=== PATIENT | female | born 1975 | race Asian ===

== ENCOUNTER 2018-09-10 15:01 | Emergency (ER) | payer OTHER, MEDICAID, SELFPAY ==
[2018-09-10 15:07] VITALS: BP 144/94; PULSE 99; RESP 14; TEMP 37.3; O2SAT 98
--- NOTE | 2018-09-10 15:30 | PC.NURSE ---
LE contacted per pt request
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
[2018-09-10 16:01] LABS: Add Manual Diff / Slide Review NO; Basophils Percent Auto 0.3 % (0-2); Eosinophils Percent Auto 6.1 % (2-4); Hematocrit 36.6 % (36-46); Hemoglobin 12.2 g/dL (12.0-16.0); Lymphocytes Percent Auto 39.5 % (25-40); Mean Corpuscular HGB Conc 33.2 % (30-36); Mean Corpuscular Hemoglobin 31.3 PG (26-34); Mean Corpuscular Volume 94.1 fL (80-100); Monocytes Percent Auto 4.3 % (3-14); Neutrophils Absolute Auto 3600 /uL (3000-5900); Neutrophils Percent Auto 49.8 % (50-75); Platelet Count 292 X10^3/uL (150-400); Red Blood Cell Count 3.89 X10^6/uL (4.0-5.2); Red Cell Distribution Width 13.2 % (11.6-14.8); White Blood Cell Count 7.3 X10^3/uL (4.5-11.0)
[2018-09-10 16:02] LABS: Bacteria Urine None Seen; RBC Urine None Seen (0-5/HPF)
[2018-09-10 16:11] LABS: Appearance Urine UA CLEAR; Bilirubin Urine UA NEGATIVE (NEGATIVE); Color Urine UA YELLOW; Glucose Urine UA NEGATIVE (Normal); Ketones Urine UA NEGATIVE (NEGATIVE); Leukocyte Esterase Urine UA NEGATIVE (NEGATIVE); Nitrite Urine UA NEGATIVE (Negative); Occult Blood Urine UA NEGATIVE (Negative); Protein Urine UA NEGATIVE (Negative); Specific Gravity Urine UA <=1.005 (1.000-1.035); Urobilinogen Urine UA 0.2 E.U./dL (0.2)
[2018-09-10 16:19] LABS: Urine Cocaine Negative (Negative); Urine Tetrahydrocannabinol Negative (Negative)
[2018-09-10 16:20] LABS: Urine Amphetamines Positive (Negative); Urine Barbiturates Negative (Negative); Urine Benzodiazepines Negative (Negative); Urine MDMA Negative (Negative); Urine Methadone Negative (Negative); Urine Methamphetamines Positive (Negative); Urine Morphine/Opi cutoff 2000 Positive (Negative); Urine Oxycodone Negative (Negative); Urine Phencyclidine Negative (Negative); Urine Tricyclic Antidepressant Negative (Negative)
[2018-09-10 16:23] LABS: Culture Indicated Urine Cult Not Indicated; Squamous Epithelial Cell Urine 0-1 /HPF; WBC Urine 0-1/HPF (0-5/HPF)
[2018-09-10 16:43] LABS: Alanine Aminotransferase 45 IU/L (9-52); Albumin 4.3 g/dL (3.5-5.0); Alkaline Phosphatase 45 U/L (38-126); Aspartate Aminotransferase 43 IU/L (14-36); BUN Creatinine Ratio 11.4 (6-22); Bilirubin Total 0.4 mg/dL (0.2-1.3); Blood Urea Nitrogen 8 mg/dL (7-17); Carbon Dioxide 26 mmol/L (22-32); Chloride 103 mmol/L (98-107); Estimated Glomerular Filt Rate > 60.0 mL/min (>60); Ethanol (ETOH) < 10 mg/dL; Globulin 2.2 g/dL (1.7-4.1); Glucose 87 mg/dL (70-100); HEMOLYSIS < 15 (0-50); Potassium 3.7 mmol/L (3.4-5.1); Sodium 139 mmol/L (137-145); Total Protein 6.5 g/dL (6.3-8.2)
[2018-09-10 16:50] VITALS: BP 142/100; PULSE 98; RESP 18; O2SAT 97
[2018-09-10] MEDS: ACETAMINOPHEN 325 MG TABLET 975 MG PO (17:33)
== END 2018-09-10 17:39 | disposition home or self-care (01) ==
PROVIDERS: Emergency Provider Nurse Practitioner Family
DX: S81.811A Laceration without foreign body, right lower leg, initial encounter (principal); M25.561 Pain in right knee; M25.531 Pain in right wrist; Y04.8XXA Assault by other bodily force, initial encounter
CPT/HCPCS: 36415; 73130; 73560; 80053; 80305; 80320; 81001; 81025; 85025; 99282; 99284

== ENCOUNTER 2018-11-01 14:46 | Emergency (ER) | payer OTHER, MEDICAID, SELFPAY ==
[2018-11-01 14:54] VITALS: BP 122/85; PULSE 115; RESP 12; TEMP 37.2; O2SAT 98
--- NOTE | 2018-11-01 15:16 | ED.PSYCH ---
HPI - Psych <ABHI Arroyo - Last Filed: 11/01/18 21:24> General Chief Complaint: Psychiatric Symptoms Stated Complaint: ADHD and PTSD, no meds in 2 months,cant slow down Time Seen by Provider: 11/01/18 14:57 Source: patient and family Mode of arrival: ambulatory Limitations: altered mental status History of Present Illness HPI Narrative: 43-year-old female history of PTSD and ADD brought in by boyfriend due to acting oddly over the past several weeks and worse over the past week and a half. She had to be escorted from police use from the brother's house as she is not welcome there he reports that she is not making much sense and is nonstop talking. He denies that she has been violent. she denies that she has been wanting to hurt herself. in her current state is not a good historian. She does not voice any complaints. she has rapid speech that is illogical, inconsistent and nonlinear MD complaint: altered mental status Related Data Home Medications Medication Instructions Recorded Confirmed Unobtainable 11/01/18 11/01/18 Allergies Allergy/AdvReac Type Severity Reaction Status Date / Time No Known Drug Allergies Allergy Unknown Unverified 11/01/18 14:56 [NO KNOWN DRUG ALLERGIES] Review of Systems <ABHI Arroyo - Last Filed: 11/01/18 21:24> Constitutional Denies fatigue Eyes Denies change in vision, Denies eye discharge, Denies irritation and Denies loss of vision ENT Ears, Nose, Mouth, and Throat: Denies change in voice, Denies neck pain and Denies sore throat Cardiovascular Denies chest pain, Denies irregular heart rhythm, Denies lightheadedness, Denies palpitations, Denies dyspnea, Denies dyspnea on exertion and Denies orthopnea Respiratory Denies cough, Denies dyspnea, Denies dyspnea on exertion and Denies wheezing Gastrointestinal Gastrointestinal: Denies abdominal pain, Denies change in bowel habits, Denies diarrhea, Denies nausea and Denies vomiting Genitourinary Denies hematuria, Denies flank pain, Denies urinary incontinence and Denies urinary urgency Musculoskeletal Denies neck pain Integumentary/Breasts Denies pruritus, Denies erythema, Denies rash and Denies wounds Neurologic Reports behavioral changes and Denies loss of vision Psychiatric Reports anxiety, Reports behavioral changes, Reports auditory hallucinations, Denies homicidal ideation and Denies suicidal ideation Endocrine Denies fatigue, Denies flushing and Denies palpitations Allergic/Immunologic Denies wheezing Exam <ABHI Arroyo - Last Filed: 11/01/18 21:24> Initial Vital Signs Initial Vital Signs: Vital Signs Temperature 98.9 F 11/01/18 14:54 Pulse Rate 115 H 11/01/18 14:54 Respiratory Rate 12 11/01/18 14:54 Blood Pressure 122/85 11/01/18 14:54 Pulse Oximetry 98 11/01/18 14:54 Const General: cooperative and well developed Nutritional Appearance: well nourished Orientation: alert, awake, oriented x3 and confused HENMT Mouth: oral mucosae normal and oropharynx normal Eyes General: appearance normal, both eyes and all related structures Eyelids: eyelids normal Conjunctivae: conjunctivae normal Sclera: sclerae normal Pupils: PERRL EOM: EOM intact bilaterally Neck Neck: normal visual inspection, trachea midline, No lymphadenopathy, No midline deformity and No JVD Lymphatic: No lymphedema Chest Chest: normal inspection of the chest Resp Effort & Inspection: normal respiratory effort, able to speak in complete sentences, no respiratory distress and no use of accessory muscles Auscultation: clear to auscultation bilaterally, no rales, no rhonchi and no wheezes Cardio Rate: regular rate Rhythm: regular rhythm Heart Sounds: no click, no gallops, no murmurs and no rubs Pulses: normal peripheral pulses GI Inspection: non-distended Palpation: soft, no hepatosplenomegaly, No guarding, No pulsatile mass and No tender Auscultation: normal bowel sounds Skin General: no rashes or lesions noted, No jaundice and No petechiae Neuro General: alert, oriented x3, gait normal and no focal motor deficits Speech: speech normal Psych Appearance: disheveled Speech and Movement: agitated and pressured speech Mood: anxious mood Attitude: cooperative Thought Process: flight of ideas, illogical and loose association Thought Content: delusions, hallucinations and suicidality Judgment: limited <Steven Garcia DO - Last Filed: 11/02/18 06:14> Initial Vital Signs Initial Vital Signs: Vital Signs Temperature 98.9 F 11/01/18 14:54 Pulse Rate 115 H 11/01/18 14:54 Respiratory Rate 12 11/01/18 14:54 Blood Pressure 122/85 11/01/18 14:54 Pulse Oximetry 98 11/01/18 14:54 Course <ABIH Arroyo - Last Filed: 11/01/18 21:24> Orders Ordered: ED Orders 11/01/18 22:30 Consult to Product Applications Engineer Stat Discontinued Medications Diphenhydramine HCl (Benadryl) 25 mg PO NOW ONE Stop: 11/01/18 16:06 Last Admin: 11/01/18 16:56 Dose: Lorazepam (Ativan) 1 mg PO NOW ONE Stop: 11/01/18 16:04 Last Admin: 11/01/18 16:56 Dose: Olanzapine (Zyprexa Zydis) 10 mg PO NOW ONE Stop: 11/01/18 16:13 Last Admin: 11/01/18 16:56 Dose: Olanzapine (Zyprexa) 10 mg IM NOW ONE Stop: 11/01/18 16:13 Last Admin: 11/01/18 16:22 Dose: 10 mg Vital Signs - 8 hr 11/01/18 23:43 Pulse Rate 84 Respiratory Rate 22 Blood Pressure [Left Arm] 160/88 H Pulse Oximetry 98 <Steven Garcia DO - Last Filed: 11/02/18 06:14> Orders Ordered: ED Orders 11/01/18 22:30 Consult to Product Applications Engineer Stat Discontinued Medications Diphenhydramine HCl (Benadryl) 25 mg PO NOW ONE Stop: 11/01/18 16:06 Last Admin: 11/01/18 16:56 Dose: Lorazepam (Ativan) 1 mg PO NOW ONE Stop: 11/01/18 16:04 Last Admin: 11/01/18 16:56 Dose: Olanzapine (Zyprexa Zydis) 10 mg PO NOW ONE Stop: 11/01/18 16:13 Last Admin: 11/01/18 16:56 Dose: Olanzapine (Zyprexa) 10 mg IM NOW ONE Stop: 11/01/18 16:13 Last Admin: 11/01/18 16:22 Dose: 10 mg Vital Signs - 8 hr 11/01/18 23:43 Pulse Rate 84 Respiratory Rate 22 Blood Pressure [Left Arm] 160/88 H Pulse Oximetry 98 MDM - Psych <ABHI Arroyo - Last Filed: 11/01/18 21:24> Lab Data Result diagrams: 11/01/18 16:14 11/01/18 16:14 Lab Results 11/01/18 11/01/18 11/01/18 Range/Units 16:14 16:14 16:14 WBC 14.1 H (4.5-11.0) X10^3/uL RBC 4.13 (4.0-5.2) X10^6/uL Hgb 12.9 (12.0-16.0) g/dL Hct 39.0 (36-46) % MCV 94.4 (80-100) fL MCH 31.3 (26-34) PG MCHC 33.1 (30-36) % RDW 13.3 (11.6-14.8) % Plt Count 292 (150-400) X10^3/uL Neut % (Auto) 78.2 H (50-75) % Lymph % (Auto) 16.1 L (25-40) % [place] % (Auto) 4.5 (3-14) % Eos % (Auto) 0.3 L (2-4) % Baso % (Auto) 0.9 (0-2) % Neut # (Auto) 56161 H (2792-4749) /uL Sodium 141 (137-145) mmol/L Potassium 4.5 (3.4-5.1) mmol/L Chloride 103 (98-107) mmol/L Carbon Dioxide 26 (22-32) mmol/L BUN 22 H (7-17) mg/dL Creatinine 0.90 (0.52-1.04) mg/dL Estimated GFR > 60.0 (>60) mL/min BUN/Creatinine Ratio 24.4 H (6-22) Glucose 133 H (70-100) mg/dL Calcium 9.5 (8.4-10.2) mg/dL Total Bilirubin 0.4 (0.2-1.3) mg/dL AST 54 H (14-36) IU/L ALT 73 H (9-52) IU/L Alkaline Phosphatase 69 (38-126) U/L Total Protein 7.3 (6.3-8.2) g/dL Albumin 4.7 (3.5-5.0) g/dL Globulin 2.6 (1.7-4.1) g/dL Albumin/Globulin Ratio 1.8 (1.0-2.8) TSH 0.82 (0.47-4.68) uIU/mL Urine RBC (0-5/HPF) Urine WBC (0-5/HPF) Urine Bacteria (None) Ur Culture Indicated? Micro UA Comment Urine Opiates Screen (Negative) Ur Oxycodone Screen (Negative) Urine Methadone Screen (Negative) Ur Barbiturates Screen (Negative) U Tricyclic Antidepress (Negative) Ur Phencyclidine Scrn (Negative) Ur Amphetamines Screen (Negative) U Methamphetamines Scrn (Negative) Ur MDMA Scrn (Ecstasy) (Negative) U Benzodiazepines Scrn (Negative) Urine Cocaine Screen (Negative) U Marijuana (THC) Screen (Negative) Ethyl Alcohol < 10 mg/dL 11/01/18 11/01/18 Range/Units 17:10 17:10 WBC (4.5-11.0) X10^3/uL RBC (4.0-5.2) X10^6/uL Hgb (12.0-16.0) g/dL Hct (36-46) % MCV (80-100) fL MCH (26-34) PG MCHC (30-36) % RDW (11.6-14.8) % Plt Count (150-400) X10^3/uL Neut % (Auto) (50-75) % Lymph % (Auto) (25-40) % [place] % (Auto) (3-14) % Eos % (Auto) (2-4) % Baso % (Auto) (0-2) % Neut # (Auto) (1935-3835) /uL Sodium (137-145) mmol/L Potassium (3.4-5.1) mmol/L Chloride (98-107) mmol/L Carbon Dioxide (22-32) mmol/L BUN (7-17) mg/dL Creatinine (0.52-1.04) mg/dL Estimated GFR (>60) mL/min BUN/Creatinine Ratio (6-22) Glucose (70-100) mg/dL Calcium (8.4-10.2) mg/dL Total Bilirubin (0.2-1.3) mg/dL AST (14-36) IU/L ALT (9-52) IU/L Alkaline Phosphatase (38-126) U/L Total Protein (6.3-8.2) g/dL Albumin (3.5-5.0) g/dL Globulin (1.7-4.1) g/dL Albumin/Globulin Ratio (1.0-2.8) TSH (0.47-4.68) uIU/mL Urine RBC 1-5/hpf (0-5/HPF) Urine WBC 0-1/hpf (0-5/HPF) Urine Bacteria None seen (None) Ur Culture Indicated? Cult not indicated Micro UA Comment Not Reportable Urine Opiates Screen Negative (Negative) Ur Oxycodone Screen Negative (Negative) Urine Methadone Screen Negative (Negative) Ur Barbiturates Screen Negative (Negative) U Tricyclic Antidepress Negative (Negative) Ur Phencyclidine Scrn Negative (Negative) Ur Amphetamines Screen Positive H (Negative) U Methamphetamines Scrn Positive H (Negative) Ur MDMA Scrn (Ecstasy) Positive H (Negative) U Benzodiazepines Scrn Negative (Negative) Urine Cocaine Screen Negative (Negative) U Marijuana (THC) Screen Positive H (Negative) Ethyl Alcohol mg/dL Point of Care Testing Test Results Negative Urine Dip Bedside Urine Glucose Negative Bedside Urine Bilirubin - Negative Bedside Urine Ketone - Negative Urine Specific [place] 1.030 Bedside Urine Occult Blood ++ Bedside Urine pH 6.0 Bedside Urine Protein +/- 15 Bedside Urine Urobilinogen - Negative Bedside Urine Nitrite - Negative Bedside Urine Leukocytes - Negative Esterase MDM Narrative Medical decision making narrative: patient presents as gravely disabled at current timeframe and does not appear able to care for herself safely at the current time. She does deny that she wants to hurt herself or anybody else. She appears to be manic and be suffering from auditory hallucinations where multiple people are talking to me she has ground or thoughts where she is able to communicate with God and having the ability to see family trees and be able to make the connection between them all. patient tried to leave the emergency room due to believe of grave disability she was held for evaluation by [facility]. laboratory results show mildly elevated white count otherwise is unremarkable. Urine drug screen shows positive for amphetamines methamphetamines MDMA and marijuana. due to agitation she was given Zyprexa. This helped her to relax. [facility] however she was very sleepy when they arrived and were not able to do an evaluation. They state that if she is still acting the same tomorrow morning to reduce patch them in the morning after she has had some sleep. patient signed out to Dr. Garcia. <Steven Garcia, DO - Last Filed: 11/02/18 06:14> Lab Data Lab Results 11/01/18 11/01/18 11/01/18 Range/Units 16:14 16:14 16:14 WBC 14.1 H (4.5-11.0) X10^3/uL RBC 4.13 (4.0-5.2) X10^6/uL Hgb 12.9 (12.0-16.0) g/dL Hct 39.0 (36-46) % MCV 94.4 (80-100) fL MCH 31.3 (26-34) PG MCHC 33.1 (30-36) % RDW 13.3 (11.6-14.8) % Plt Count 292 (150-400) X10^3/uL Neut % (Auto) 78.2 H (50-75) % Lymph % (Auto) 16.1 L (25-40) % [place] % (Auto) 4.5 (3-14) % Eos % (Auto) 0.3 L (2-4) % Baso % (Auto) 0.9 (0-2) % Neut # (Auto) 93337 H (4661-0556) /uL Sodium 141 (137-145) mmol/L Potassium 4.5 (3.4-5.1) mmol/L Chloride 103 (98-107) mmol/L Carbon Dioxide 26 (22-32) mmol/L BUN 22 H (7-17) mg/dL Creatinine 0.90 (0.52-1.04) mg/dL Estimated GFR > 60.0 (>60) mL/min BUN/Creatinine Ratio 24.4 H (6-22) Glucose 133 H (70-100) mg/dL Calcium 9.5 (8.4-10.2) mg/dL Total Bilirubin 0.4 (0.2-1.3) mg/dL AST 54 H (14-36) IU/L ALT 73 H (9-52) IU/L Alkaline Phosphatase 69 (38-126) U/L Total Protein 7.3 (6.3-8.2) g/dL Albumin 4.7 (3.5-5.0) g/dL Globulin 2.6 (1.7-4.1) g/dL Albumin/Globulin Ratio 1.8 (1.0-2.8) TSH 0.82 (0.47-4.68) uIU/mL Urine RBC (0-5/HPF) Urine WBC (0-5/HPF) Urine Bacteria (None) Ur Culture Indicated? Micro UA Comment Urine Opiates Screen (Negative) Ur Oxycodone Screen (Negative) Urine Methadone Screen (Negative) Ur Barbiturates Screen (Negative) U Tricyclic Antidepress (Negative) Ur Phencyclidine Scrn (Negative) Ur Amphetamines Screen (Negative) U Methamphetamines Scrn (Negative) Ur MDMA Scrn (Ecstasy) (Negative) U Benzodiazepines Scrn (Negative) Urine Cocaine Screen (Negative) U Marijuana (THC) Screen (Negative) Ethyl Alcohol < 10 mg/dL 11/01/18 11/01/18 Range/Units 17:10 17:10 WBC (4.5-11.0) X10^3/uL RBC (4.0-5.2) X10^6/uL Hgb (12.0-16.0) g/dL Hct (36-46) % MCV (80-100) fL MCH (26-34) PG MCHC (30-36) % RDW (11.6-14.8) % Plt Count (150-400) X10^3/uL Neut % (Auto) (50-75) % Lymph % (Auto) (25-40) % [place] % (Auto) (3-14) % Eos % (Auto) (2-4) % Baso % (Auto) (0-2) % Neut # (Auto) (3847-7522) /uL Sodium (137-145) mmol/L Potassium (3.4-5.1) mmol/L Chloride (98-107) mmol/L Carbon Dioxide (22-32) mmol/L BUN (7-17) mg/dL Creatinine (0.52-1.04) mg/dL Estimated GFR (>60) mL/min BUN/Creatinine Ratio (6-22) Glucose (70-100) mg/dL Calcium (8.4-10.2) mg/dL Total Bilirubin (0.2-1.3) mg/dL AST (14-36) IU/L ALT (9-52) IU/L Alkaline Phosphatase (38-126) U/L Total Protein (6.3-8.2) g/dL Albumin (3.5-5.0) g/dL Globulin (1.7-4.1) g/dL Albumin/Globulin Ratio (1.0-2.8) TSH (0.47-4.68) uIU/mL Urine RBC 1-5/hpf (0-5/HPF) Urine WBC 0-1/hpf (0-5/HPF) Urine Bacteria None seen (None) Ur Culture Indicated? Cult not indicated Micro UA Comment Not Reportable Urine Opiates Screen Negative (Negative) Ur Oxycodone Screen Negative (Negative) Urine Methadone Screen Negative (Negative) Ur Barbiturates Screen Negative (Negative) U Tricyclic Antidepress Negative (Negative) Ur Phencyclidine Scrn Negative (Negative) Ur Amphetamines Screen Positive H (Negative) U Methamphetamines Scrn Positive H (Negative) Ur MDMA Scrn (Ecstasy) Positive H (Negative) U Benzodiazepines Scrn Negative (Negative) Urine Cocaine Screen Negative (Negative) U Marijuana (THC) Screen Positive H (Negative) Ethyl Alcohol mg/dL Point of Care Testing Test Results Negative Urine Dip Bedside Urine Glucose Negative Bedside Urine Bilirubin - Negative Bedside Urine Ketone - Negative Urine Specific [place] 1.030 Bedside Urine Occult Blood ++ Bedside Urine pH 6.0 Bedside Urine Protein +/- 15 Bedside Urine Urobilinogen - Negative Bedside Urine Nitrite - Negative Bedside Urine Leukocytes - Negative Esterase Discharge Plan Departure Clinical Impression: Acute psychosis Prescriptions: No Action Unobtainable RF: 0 <Steven Garcia DO - Last Filed: 11/02/18 06:14> Cosign ED Attending Cosignature Attestation: Patient turned over to me from provider who 1st evaluated the patient yesterday. Patient has remained calm overnight. Have not had to re-dose any medications. She has been sleeping in an unlocked room all evening. Vital signs stable. Patient was evaluated by mental health professional last evening who stated that they were unable to do either evaluation given the patient's current mental condition. They recommended the patient sleep overnight and re-evaluation in the morning to see if the condition persists. They did ask for a call back. Social work consult was also placed. Will turn patient over to day provider for further evaluation and disposition.
[2018-11-01 16:22] LABS: Add Manual Diff / Slide Review NO; Basophils Percent Auto 0.9 % (0-2); Eosinophils Percent Auto 0.3 % (2-4); Hemoglobin 12.9 g/dL (12.0-16.0); Lymphocytes Percent Auto 16.1 % (25-40); Mean Corpuscular HGB Conc 33.1 % (30-36); Mean Corpuscular Hemoglobin 31.3 PG (26-34); Mean Corpuscular Volume 94.4 fL (80-100); Monocytes Percent Auto 4.5 % (3-14); Neutrophils Absolute Auto 11000 /uL (3000-5900); Neutrophils Percent Auto 78.2 % (50-75); Platelet Count 292 X10^3/uL (150-400); Red Blood Cell Count 4.13 X10^6/uL (4.0-5.2); Red Cell Distribution Width 13.3 % (11.6-14.8); White Blood Cell Count 14.1 X10^3/uL (4.5-11.0)
[2018-11-01] MEDS: OLANZapine 10 MG VIAL IM (16:22)
--- NOTE | 2018-11-01 16:25 | CM.SWNOTE ---
Addendum entered by DAHIANA Cole 11/01/18 19:16: Pt has tox screen positive for meth, but behaviors seem to be not only related to substance use, but behavioral health issues. Original Note: Addendum entered by DAHIANA Cole 11/01/18 17:36: [facility] spoke with pt's therapist Liana Saez [phone] ext [phone] at [facility]. She said pt was well known to the [place] office, but has bounced back and forth between the offices. When she saw her a few days ago, she noticed a sharp decline in her abilities. She noticed increased suspiciousness, paranoia and reported that it was the first time that pt appeared to be responding to internal stimuli. Liana reported that the police were called when pt was in [place] due to her behavior. The dx she had from [facility] was ADHD and PTSD, but pt's therapist questioned whether she may also have a dx of either schizoaffective disorder or bipolar disorder. Liana informed this [facility] that pt has a past hx of crack cocaine. Pt denied use, but awaiting labs to determine if this behavior is related to behavioral health or substance use. Original Note: ED RATE MANAGER Note Presenting Problem: Pt is a 43 yo female who presents with pressured and illogical speech. She was able to slow down enough on occasion to answer questions re orientation and suicidality which she denied, but most of the time patient spoke in run on sentences without taking a breath. Her motor activity is agitated, speech difficult to follow and boyfriiend stated that she has been decompensating for the past two months, but the past two weeks have been the worst. there is no clear precipitant other than the fact that patient has been out of medication. Stressors: Pt came speaking about her family and son, but bofriend was able to provide information. He stated that her ex- has custody of their 10 year old son. He believes this may be due to pt's psychiatric issues. Pt frequently spoke in rambling sentences about being a mother and the importance of her children. Assessment: Pt is gravely disabled. She would be unable to care for herself at this time outside of a structured environment. Pt's boyfriend does not know how to care for her at this time and needed to contact the [facility]. She eventually agreed to come in voluntarily and was brought to the ED by Kush. Pt seems to be responding to voices. She acknowleged that she hears voices and mentioned someone named Shilpi. She denied responding to any command hallucinations. Plan: Pt is in need of a safe environment. [facility] has veen called and will be called again once pt's labs are back and she is medically stable. Discharge Planning/Care Management ED Crisis Response Assessment Start: 11/01/18 16:07 Freq: Status: Active Protocol: Document 11/01/18 16:07 (Rec: 11/01/18 16:25 [id number]) ED Crisis Response Assessment RATE MANAGER Assessment Type Mental Health Reason for RATE MANAGER Referral Pt has extreme pressured speech. She was brought in by her boyfriend, Kush, who stated that he needed help and can no longer control her. He called the short order cook, but t camron were able to get her to come to the hospital voluntarily. Referred by ED provider and pt's nurse Presenting Problem Pt presents with racing thoughts, pressured speech to the extent that she does not even take a breath, and according to bf, is not able to care for herself at this time. Eye contact is fair, pt has psychomotor agitation, speech is disorganized, mood is sad, fearful and affect is labile. Pt is oriented x3. Her thought prpocess is illogical , tangential with loose associations. She has jainism preoccupation, stated that she hears voices and pt's bf reported pt to be delusional. Though content is focused on family, G-d, and the dates of her sons' birthdays. Mental health diagnosis Pt reported that she has a dx of ADHD and PTSD, Boyfriend Kush, reported that pt takes Adderal, Xanax, Abilify, Sertraline. He is not aware of any other dx, but pt appears to be in the midst of a manic state with psychosis. [facility]/CMS check Yes Suicidal thoughts No Past Suicidal thoughts No Current Suicidal thoughts No Current plan for self harm No Thoughts of harm to others No Past thoughts of harm to others No Current Risk factors Marital and family difficulties Risk factor comments According to pt's boyfirend, pt 's ex- has custody of their son and this has been very difficult for pt. Crisis Plan Plan is to call [facility] once labs are back. Called and did an MIS check. [facility] is calling this therapist to see if she is still in and can call the ED. Additional Comment Pt is gravely disabled and in need of inpatient psychiatric hospitalization. E
[2018-11-01 16:33] LABS: Alanine Aminotransferase 73 IU/L (9-52); Albumin 4.7 g/dL (3.5-5.0); Albumin Globulin Ratio 1.8 (1.0-2.8); Alkaline Phosphatase 69 U/L (38-126); Aspartate Aminotransferase 54 IU/L (14-36); BUN Creatinine Ratio 24.4 (6-22); Bilirubin Total 0.4 mg/dL (0.2-1.3); Blood Urea Nitrogen 22 mg/dL (7-17); Calcium 9.5 mg/dL (8.4-10.2); Carbon Dioxide 26 mmol/L (22-32); Chloride 103 mmol/L (98-107); Estimated Glomerular Filt Rate > 60.0 mL/min (>60); Globulin 2.6 g/dL (1.7-4.1); Glucose 133 mg/dL (70-100); HEMOLYSIS < 15 (0-50); Potassium 4.5 mmol/L (3.4-5.1); Sodium 141 mmol/L (137-145); Total Protein 7.3 g/dL (6.3-8.2)
--- NOTE | 2018-11-01 16:33 | PC.NURSE ---
patient looking out of door window talking
--- NOTE | 2018-11-01 16:33 | PC.NURSE ---
In room with pt for the first hour and half in room 12. Pt non-stop talking, rhyming words speaking fast with diffuclty to understand. Pt not answering questions. Keeps stating her name and her childrens names. Significant other reports pt has been offer her psych medications for 2 months. Provider wanted pt in room 13 due to patient not staying in room and trying to leave ER. Required assistance into room 13 after about 20 min of trying to talk patient into room without physical contact. Provider made aware. Had ordered oral medication, pt refused to take oral pills. Medicated with IM zyprexa. After seclusion doors were closed patient continue to talk fast past and animated pacing inthe room
[2018-11-01 16:42] LABS: Ethanol (ETOH) < 10 mg/dL
--- NOTE | 2018-11-01 16:50 | PC.NURSE ---
juanita is standing at the door, looking through the window talking
--- NOTE | 2018-11-01 17:08 | PC.NURSE ---
patient used the bathroom ,collected sample
[2018-11-01 17:18] LABS: Thyroid Stimulating Hormone 0.82 uIU/mL (0.47-4.68)
[2018-11-01 17:21] LABS: Bacteria Urine None Seen
[2018-11-01 17:25] LABS: Urine Tetrahydrocannabinol Positive (Negative)
[2018-11-01 17:26] LABS: Urine Amphetamines Positive (Negative); Urine Barbiturates Negative (Negative); Urine Benzodiazepines Negative (Negative); Urine Cocaine Negative (Negative); Urine MDMA Positive (Negative); Urine Methadone Negative (Negative); Urine Methamphetamines Positive (Negative); Urine Morphine/Opi cutoff 2000 Negative (Negative); Urine Oxycodone Negative (Negative); Urine Phencyclidine Negative (Negative); Urine Tricyclic Antidepressant Negative (Negative)
[2018-11-01 17:28] LABS: RBC Urine 1-5/HPF (0-5/HPF)
[2018-11-01 17:29] LABS: Culture Indicated Urine Cult Not Indicated; WBC Urine 0-1/HPF (0-5/HPF)
--- NOTE | 2018-11-01 17:40 | PC.NURSE ---
Offered water. Bathroom door open and accessable to patient. Pt continues to attempt to leave room when door is opened, continues to speak in fast, pressured, non sensical speech in which she repeats the same phrases regarding her children 'his name is and he came out of my vagina...will someone claim me?
--- NOTE | 2018-11-01 17:47 | PC.NURSE ---
patinet is standing at the door looking out the window, bathroom door is open
--- NOTE | 2018-11-01 19:16 | PC.NURSE ---
Patient is laying down on the bed
--- NOTE | 2018-11-01 19:16 | PC.NURSE ---
Patient is still laying in bed, bathroom door is open
--- NOTE | 2018-11-01 19:40 | PC.NURSE ---
[facility] arrived for patient at this time.
--- NOTE | 2018-11-01 19:45 | PC.NURSE ---
patient is laying on bed, with bathroom door open and door to room cracked
--- NOTE | 2018-11-01 19:46 | PC.NURSE ---
patient is laying on bed, with bathroom door open and door to room cracked
--- NOTE | 2018-11-01 19:48 | PC.NURSE ---
Pt sleeping on mattress in room. Door opened. [facility] here to evaluate.
--- NOTE | 2018-11-01 20:11 | PC.NURSE ---
patient is sleeping on bed, bathroom door is open, door is cracked, patient allowed me (SODA CLERK) to take vitals
[2018-11-01 20:12] VITALS: BP 97/58; PULSE 99; RESP 18; O2SAT 99
--- NOTE | 2018-11-01 21:01 | PC.NURSE ---
Pt woke up suddenly, walked out of room verbalizing non sensical, difficult to redirect. Walked back to room. Continued to verbalized name repetitively. Refused to stay in room. Unable to be verbally directed to stay in room. Door shut, order obtained for seclusion.
--- NOTE | 2018-11-01 21:12 | PC.NURSE ---
Pt now laying down and cooperative. Eyes closed. Door open. Low stim environment.
[2018-11-01 23:43] VITALS: BP 160/88; PULSE 84; RESP 22; O2SAT 98
[2018-11-02 06:16] VITALS: BP 176/86; PULSE 88; RESP 20; O2SAT 98
--- NOTE | 2018-11-02 06:17 | PC.NURSE ---
She awoke when I took her blood pressure,she was alert and co-operativeWhen asked [facility] [place]She asked me to turn the heat down in the room because she was too warm which I did.She asked for a box of tissues and when I gave it to her she said [facility].
--- NOTE | 2018-11-02 07:17 | PC.NURSE ---
Pt is awakened for VS. She is verbally abusive to staff. Jerked the phone out of shift supervisor nurse who was trying to assist her with making a call. You cant tell me what to do. I will be in room 12. Explained she would be in her current room of 13 until evaluated by mental health provider
--- NOTE | 2018-11-02 07:37 | PC.NURSE ---
s/w pt. Refuses to remove her street clothes and put on designated scrubs. Requests meds and states to her that we will have her speak to P
--- NOTE | 2018-11-02 09:02 | PC.NURSE ---
Pt with multiple flushing of the toilet in room. Emesis bag given and pt is encouraged to use instead of flushing kleenex down toilet. Pt tray is taken and pt dayami she needs it and it is explained that she cannot have it. A chair is provided as pt c/o needing to sit up but she is using it as a table. Requests we call her friend Kush as he is her mental health counselor but she had spoken to him earlier and he has not arrived at this time. She does understand that she needs to s/w [facility] prior to dc and she states she cannot legally talk to anyone else. Pt with rambling speech and manic/obsessive compulsive type behaviors. Pt understands need to stay in room until an evaluation has occurred. She is compliant with this at this time but continues to ask us to call Kush as he is her ride.
--- NOTE | 2018-11-02 09:54 | PC.NURSE ---
Pt sits up and is now rambling dates and phone numbers non stop. Including believes she is . She is nonstop rambling speech. Loud in tone
--- NOTE | 2018-11-02 10:17 | PC.NURSE ---
S/W Maria Del Rosario from [facility]. She is going to call Kush and try to ascertain information about pts usual mental health and try to find information to detain pt.
--- NOTE | 2018-11-02 10:55 | PC.NURSE ---
Continues rambling speech. Non stop.
--- NOTE | 2018-11-02 11:07 | PC.NURSE ---
Rambling speech. Moving mattress around in room. Sitting in chair.
--- NOTE | 2018-11-02 11:10 | PC.NURSE ---
Pt attempts to walk out of ED and is found by staff immediately in registration area. PT is escorted back into room and door is closed. MD aware of need for order of seclusion.
--- NOTE | 2018-11-02 11:23 | PC.NURSE ---
patient is laying down on the bed
--- NOTE | 2018-11-02 11:31 | PC.NURSE ---
Pt used bathroom in room. Pt is walking around in room and talking out loud.
--- NOTE | 2018-11-02 11:48 | PC.NURSE ---
[facility] in room with pt. Door open.
--- NOTE | 2018-11-02 12:03 | PC.NURSE ---
[facility] in room with pt. Door open to room.
--- NOTE | 2018-11-02 12:16 | PC.NURSE ---
Pt given lunch tray from kitchen and also orange juice and ice water. Pt sitting on floor eating lunch.
--- NOTE | 2018-11-02 12:17 | PC.NURSE ---
patient was given lunch, asked for water with ice and orange juice, gave to patient, then patient asked if she could wash her hands, patient kept requesting to have door cracked, it was explained to her that because she tried to leave we have to keep the door closed.
--- NOTE | 2018-11-02 12:19 | PC.NURSE ---
[facility] sts will attempt to contact Kush for him to accept to monitor and keep pt safe. He has not returned her or our calols since pt arrived
--- NOTE | 2018-11-02 12:30 | PC.NURSE ---
pt still eating lunch.
--- NOTE | 2018-11-02 12:47 | PC.NURSE ---
pt sitting on mattress on floor.
--- NOTE | 2018-11-02 12:47 | PC.NURSE ---
patient is laying down on the bed
--- NOTE | 2018-11-02 13:00 | PC.NURSE ---
Pt laying on bed covered with blankets. Gave pt ice water in a paper cup.
--- NOTE | 2018-11-02 13:21 | PC.NURSE ---
pt resting on bed talking out loud.
--- NOTE | 2018-11-02 13:30 | PC.NURSE ---
pt laying on mattress with blankets.
--- NOTE | 2018-11-02 13:47 | PC.NURSE ---
pt resting on bed. pt has water in paper cup.
--- NOTE | 2018-11-02 14:01 | PC.NURSE ---
pt laying on bed and talking out loud.
--- NOTE | 2018-11-02 14:19 | PC.NURSE ---
Pt resting on mattress
--- NOTE | 2018-11-02 14:30 | PC.NURSE ---
pt sitting on mattress. Talking with [facility].
--- NOTE | 2018-11-02 14:47 | PC.NURSE ---
Pt is sitting on mattress talking out loud.
--- NOTE | 2018-11-02 15:06 | PC.NURSE ---
pt resting on mattress
--- NOTE | 2018-11-02 15:17 | PC.NURSE ---
Patient is laying on bed, DCR Maria Del Rosario saw patient, Chey accepts, this [employer] SUPPORT SPECIALIST/PRACTICE ARCHITECT called for Transport, should be here around 1415 to pick patient up
--- NOTE | 2018-11-02 15:19 | PC.NURSE ---
Report called to Lakia KISER at [facility]. [phone]
[2018-11-02] MEDS: OLANZapine 10 MG VIAL IM (15:28)
--- NOTE | 2018-11-02 15:32 | PC.NURSE ---
Pt becomes extremely agitated with staff. Did not want to have any medication but agreed to it as it would help her during transport. Continued to argue with staff even after staff left the room.
--- NOTE | 2018-11-02 15:34 | PC.NURSE ---
Patient used the bathroom twice, and is pacing around the room
--- NOTE | 2018-11-02 15:55 | PC.NURSE ---
patient is laying down on the bed
[2018-11-02 16:00] VITALS: BP 122/80; PULSE 97; RESP 16; TEMP 37.6; O2SAT 100
--- NOTE | 2018-11-02 16:00 | PC.NURSE ---
PT sitting on mattress.
--- NOTE | 2018-11-02 16:06 | PC.NURSE ---
Lakia at [facility] is updated to pts improved VS.
--- NOTE | 2018-11-02 16:16 | PC.NURSE ---
Pt resting on bed.
[2018-11-02 16:21] VITALS: BP 122/80; PULSE 97; RESP 20; O2SAT 99
== END 2018-11-02 16:33 ==
PROVIDERS: Nurse Practitioner Family; Emergency Provider Emergency Medicine
DX: F23 Brief psychotic disorder (principal)
CPT/HCPCS: 80053; 80305; 80320; 81003; 81015; 81025; 84443; 85025; 96372; 99285; S0166